=== PATIENT | female | born 1965 | race Caucasian/White ===

== ENCOUNTER 2017-07-12 06:42 | Inpatient (IN) | payer OTHER ==
[~2017-07-12] VITALS: Ht 152.4 cm; Wt 69.4 kg
[2017-07-12] VITALS (54 sets, daily range): BP systolic 82–151; BP diastolic 44–123
--- NOTE | ~2017-07-12 | HC ---
[facility] [place] [address] [place] [address] CONSULTATION Name: SOM VAUGHN Room #: 236-P ADM IN M.R.#: [id number] Admission: 07/12/17 Attend Phys: Guru Austin MD Discharge: Date of : 67 Report #: [id number] THIS REPORT FOR: //name// CC: Maribel Austin REASON FOR CONSULTATION: I was asked to evaluate concerning pneumonia and septic shock. HISTORY OF PRESENT ILLNESS: The patient is a 51-year-old who presented to the Emergency Room on 07/12/2017, with shortness of breath. She was diagnosed approximately 3 weeks ago with sinus congestion and cough. She was placed on prednisone and Levaquin for 10 days. She did not improve with this and is now hospitalized with progressive weakness, fatigue, fever and nonproductive cough. She has had chest pain in the central anterior chest. No hemoptysis. No significant travel. She is a nonsmoker. She has not been exposed to any other ill persons. She has had previous sinus surgery approximately 15 years ago. No cardiac history. ALLERGIES: PENICILLIN WITH DIFFICULTY BREATHING; ERYTHROMYCIN, GI UPSET. MEDICATIONS: Prior to her admission included Zofran, Phenergan, potassium, Tricor, Zoloft, Topamax, Rupali-D, Relafen, propranolol, alprazolam, morphine, Flexeril, Voltaren, and Neurontin. PAST MEDICAL HISTORY: Cholecystectomy, chronic back pain, migraine headaches, sinus surgery, lumbar spine surgery, and hysterectomy. FAMILY HISTORY: Noncontributory. SOCIAL HISTORY: Nonsmoker, no significant alcohol intake, no HIV risk factors. REVIEW OF SYSTEMS: No GI, , skin or joint issues. PHYSICAL EXAMINATION: VITAL SIGNS: Afebrile, pulse 72, respirations 15, blood pressure 94/48, on Levophed drip. GENERAL: She is on BiPAP, alert, and cooperative. NEUROLOGIC: Mental status was normal. Neurologic examination normal. SKIN: Unremarkable. LYMPH: Unremarkable. HEENT: Unremarkable. NECK: Supple, no adenopathy. CHEST: Crackles heard posteriorly throughout with no consolidation. No rub. HEART: Regular without murmur. ABDOMEN: Soft, nontender, no hepatosplenomegaly or mass. [facility] [address] [place] [address] CONSULTATION Name: SOM VAUGHN Room #: 236[facility] IN M.R.#: [id number] Admission: 07/12/17 Attend Phys: Guru Austin MD Discharge: Date of : 67 Report #: [id number] LABORATORY STUDIES: Sodium 141, potassium 4.4, bicarb of 17, creatinine 1.4. AST 919, ALT 438, alk phos 124, bilirubin normal. Albumin at 2.8. Lactate 1.2. CPK 186. BNP 13,000. INR 1.3. Hemoglobin 11.9, white count 16, platelet count 372,000. Differential, 83% segs, 0% bands. Procalcitonin 0.2. ABGs on 2 liters showed a pO2 of 107, pCO2 of 37, pH 7.2. Chest x-ray, bilateral infiltrates with vascular congestion and cardiomegaly. Ultrasound of lower extremity is negative for DVT. CT scan of the chest, fairly extensive diffuse infiltrate, likely edema and enlarged mediastinal hilar adenopathy, small right pleural effusion. IMPRESSION: A 51-year-old with bilateral pulmonary infiltrates consistent with edema, still unclear if cardiogenic or noncardiogenic. She also has leukocytosis, acidosis, hepatitis. Although she does not have much peripheral edema, I would be concerned about viral etiology with possible viral myocarditis, although her CPK and cardiac enzymes were normal, she acts like this could be associated cardiomyopathy. Recommend continuing her workup to include urine antigen for legionella, strep pneumo. Check viral respiratory panel. EBV, CMV, HIV and fungal serology panel. Check sedimentation rate, [place], ASO, and echocardiogram. Blood, urine and sputum cultures. Continue with broad antibiotic coverage pending studies. <ELECTRONICALLY SIGNED> By: Palmer Wheat MD 07/13/17 1543 1404 1502 Palmer Wheat MD /nt
--- NOTE | ~2017-07-12 | EKG ---
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 feliz : 1965 Requested By: Nyla Boateng Order Number: [id number] MD: Fletcher Bahena Measurements Intervals [place] Rate: 84 P: 136 ND: 138 QRS: 161 QRSD: 91 T: 189 QT: 368 QTc: 436 Interpretive Statements Right and left arm electrode reversal, interpretation assumes no reversal Sinus rhythm Probable left atrial enlargement Nonspecific T abnormalities, diffuse leads Electronically Signed On 07-13-2017 17:35:35 CDT by Fletcher Bahena [email or web address] <ELECTRONICALLY SIGNED> By: Fletcher Bahena MD 07/13/17 1735 Fletcher Bahena MD /MILAGROS
--- NOTE | ~2017-07-12 | HC ---
[facility] [place] [address] CONSULTATION Name: SOM VAUGHN Room #: 236-P ADM IN M.R.#: [id number] Admission: 07/12/17 Attend Phys: Guru Austin MD Discharge: Date of : 67 Report #: [id number] THIS REPORT FOR: //name// CC: Maribel Austin DATE OF SERVICE: 07/12/2017 REASON FOR CONSULTATION: Acute respiratory failure. IMPRESSION: 1. Acute respiratory failure. 2. Pulmonary hypertension. 3. Sepsis. 4. Elevated LFTs. 5. Fatigue with encephalopathy. 6. History of chronic pain. PLAN: We will place on BiPAP, aerosol, maintain pressure. Will need to have outpatient evaluation of pulmonary hypertension as it could not be explained. Discussed with and son on the phone. We will obtain records from [facility] as a lower episode occurred to her there about a year ago. HISTORY OF PRESENT ILLNESS: A 51-year-old female comes in with progressive shortness breath over the last few days, may have been sick for over a week with some sinus issues, also received antibiotics, I believe Levaquin; positive cough; shortness of breath; fatigue; myalgias; arthralgias. No definite chest pain or palpitations. Positive shortness of breath. No history of sleep apnea and has had a sleep study, I believe ____. ALLERGIES: PENICILLIN AND ERYTHROMYCIN. SOCIAL HISTORY: Negative rheumatologic problems per . SOCIAL HISTORY: Negative tobacco. Rare ETOH. PAST SURGICAL HISTORY: Include hysterectomy, oophorectomy, back surgery, sinus surgery and cholecystectomy. REVIEW OF SYSTEMS: As above. History of migraines. She has been seen at [facility] in the past as well as [facility]. PHYSICAL EXAMINATION: VITAL SIGNS: Temperature 98; pulse 75; respirations 15; BP 131/77, seen times 3-day. EYES: Negative icterus. [facility] [address] [place] [address] CONSULTATION Name: SOM VAUGHN Room #: 236-P [facility] IN M.R.#: [id number] Admission: 07/12/17 Attend Phys: Guru Austin MD Discharge: Date of : 67 Report #: [id number] NECK: Negative JVD. LUNGS: Crackles. HEART: Regular. ABDOMEN: Bowel sounds present. EXTREMITIES: Showed no clubbing or cyanosis or edema. She wakens on BiPAP. LABORATORY DATA: BUN 28, creatinine 11. MRSA negative. Sed rate was 41. White count 11.5, bands 3, platelets 286. Urine and legionella negative. CT chest showed extensive diffuse infiltrate, enlarged mediastinal and hilar adenopathy, small right effusion and small amount of free pelvic fluid and perihepatic fluid. Echo showed PA pressure of 80, right atrial pressure of 15, ejection fraction 65, right ventricle and right atrium were dilated, [id number] pulmonic regurg, no effusion. We will follow closely with you. By: [id number] Magda Suero MD /nt
--- NOTE | ~2017-07-12 | 2DMMODE ---
[facility] [place] [address] [place] [address] 2 D/M-MODE ECHOCARDIOGRAM Name: SOM VAUGHN Room #: 236-P ADM IN M.R.#: [id number] Admission: 07/12/17 Attend Phys: Guru Austin, Discharge: Date of : 67 Date of Service: 07/13/17 1048 Report #: [id number] THIS REPORT FOR: //name// APPROVED REPORT Study performed: 07/13/2017 09:33:47 EXAM: Comprehensive 2D, Doppler, and color-flow Echocardiogram Patient Location: ICU Room #: 236 Status: routine BSA: 1.66 HR: 84 bpm BP: 137/76 mmHg Other Information Study Quality: Good Indications Pulmonary Hypertension 2D Dimensions RVDd: 37.84 mm IVC: 24.00 mm Tricuspid Valve TR Peak Chetan.: 4.04 m/s TR Peak Gr.: 65.20 mmHg PA Pressure: 80.00 mmHg Left Ventricle The left ventricle is normal size. There is normal left ventricular wall thickness. The left ventricular systolic function is normal. The left ventricular ejection fraction is within the normal range. LVEF is 60-65%. Right Ventricle Right ventricle is at the upper limits of normal. The right ventricular systolic function is normal. Atria Left atrium is dilated. Right atrium is dilated. Aortic Valve The aortic valve is normal in structure. [facility] [address] [place] [address] 2 D/M-MODE ECHOCARDIOGRAM Name: SOM VAUGHN Room #: 236-P ADM IN M.R.#: [id number] Admission: 07/12/17 Attend Phys: Guru Austin, Discharge: Date of : 67 Date of Service: 07/13/17 1048 Report #: [id number] Mitral Valve The mitral valve is normal in structure. Tricuspid Valve The tricuspid valve is normal in structure. There is moderate tricuspid regurgitation. Estimated PAP 80 mmHg. There is severe pulmonary hypertension. Pulmonic Valve The pulmonary valve is normal in structure. Great Vessels The aortic root is normal in size. The inferior vena cava is dilated with no inspiratory collapse. Pericardium There is no pericardial effusion. <Conclusion> The left ventricle is normal size. LVEF is 60-65%. Right ventricle is at the upper limits of normal. Left atrium is dilated. Right atrium is dilated. The aortic valve is normal in structure. The mitral valve is normal in structure. The tricuspid valve is normal in structure. There is moderate tricuspid regurgitation. Estimated PAP 80 mmHg. There is severe pulmonary hypertension. The pulmonary valve is normal in structure. There is no pericardial effusion. <ELECTRONICALLY SIGNED> By: Favian Oswald MD 07/13/17 1048 1048 47 Favian Oswald MD /INF
--- NOTE | ~2017-07-12 | 2DMMODE ---
[facility] [address] [email or web address] [address] 2 D/M-MODE ECHOCARDIOGRAM Name: SOM VAUGHN Room #: 236-P [facility] IN M.R.#: [id number] Admission: 07/12/17 Attend Phys: Guru Austin, Discharge: Date of : 67 Date of Service: 07/12/17 1334 Report #: [id number] THIS REPORT FOR: //name// APPROVED REPORT Study performed: 07/12/2017 12:37:43 EXAM: Comprehensive 2D, Doppler, and color-flow Echocardiogram Patient Location: ICU Room #: 236 Status: stat BSA: 1.61 BP: 94/46 mmHg Other Information Study Quality: Adequate Technically limited study due to inability to position patient, patient condition. Indications Dyspnea 2D Dimensions RVDd: 39.73 mm LVEF(%): 69.34 (>50%) IVSd: 9.69 (7-11mm) LVOT Diam: 16.21 (18-24mm) LVDd: 39.93 mm PWd: 8.77 (7-11mm) Ascending Ao: 26.84 (22-36mm) LVDs: 24.57 (25-40mm) Aortic Root: 22.29 mm IVC: 24.00 mm Perrin's LVEF: 69.34 % Volumes Left Atrial Volume (Systole) Single Plane 4CH: 38.56 mL Single Plane 2CH: 38.12 mL LA ESV Index: 27.00 mL/m2 Aortic Valve AoV Peak Chetan.: 1.49 m/s AO Peak Gr.: 8.84 mmHg LVOT Max P.80 mmHg LVOT Max V: 0.97 m/s MAGO Vmax: 1.35 cm2 Mitral Valve E/A Ratio: 0.7 [facility] [email or web address] [address] 2 D/M-MODE ECHOCARDIOGRAM Name: SOM VAUGHN ROBERT Room #: 236-P [facility] IN M.R.#: [id number] Admission: 07/12/17 Attend Phys: Guru Austin, Discharge: Date of : 67 Date of Service: 07/12/17 1334 Report #: [id number] MV Decel. Time: 206.52 ms MV E Max Chetan.: 0.83 m/s MV A Chetan.: 1.13 m/s MV PHT: 59.89 ms IVRT: 107.27 ms Pulmonary Valve PV Peak Chetan.: 1.01 m/s PV Peak Gr.: 4.06 mmHg Pulmonary Vein P Vein S: 0.61 m/s P Vein A: 0.20 m/s P Vein D: 0.50 m/s P Vein A Dur.: 83.0 msec P Vein S/D Ratio: 1.22 Tricuspid Valve TR Peak Chetan.: 4.02 m/s RAP Estimate: 15.00 mmHg TR Peak Gr.: 64.65 mmHg Left Ventricle The left ventricle is normal size. There is normal left ventricular wall thickness. The left ventricular systolic function is normal. The left ventricular ejection fraction is within the normal range. LVEF is 65%. Mild diastolic dysfunction is present (impaired relaxation pattern). Right Ventricle Right ventricle is dilated. The right ventricular systolic function is normal. Atria The left atrium size is normal. Right atrium is severely dilated. Echo noted on apical views not seen on other views suspect artifact Aortic Valve The aortic valve is normal in structure. Trace aortic regurgitation. There is no aortic valvular stenosis. Mitral Valve The mitral valve is normal in structure. Mild mitral regurgitation. No evidence of mitral valve stenosis. Tricuspid Valve The tricuspid valve is normal in structure. There is moderate to severe tricuspid regurgitation. The right atrial pressure is estimated at 15 mmHg. PAP is estimated [place] [address] [place] [address] 2 D/M-MODE ECHOCARDIOGRAM Name: SOM VAUGHN Room #: 236-P [facility] IN M.R.#: [id number] Admission: 07/12/17 Attend Phys: Guru Austin, Discharge: Date of : 67 Date of Service: 07/12/17 1334 Report #: [id number] Pulmonic Valve The pulmonary valve is normal in structure. Trace to mild pulmonic regurgitation. Great Vessels The aortic root is normal in size. IVC is dilated and collapses <50% with inspiration. Pericardium There is no pericardial effusion. <Conclusion> The left ventricle is normal size. LVEF is 65%. Right ventricle is dilated. The right ventricular systolic function is normal. Right atrium is severely dilated. Echo noted on apical views not seen on other views suspect artifact The aortic valve is normal in structure. Trace aortic regurgitation. The mitral valve is normal in structure. Mild mitral regurgitation. The tricuspid valve is normal in structure. There is moderate to severe tricuspid regurgitation. The right atrial pressure is estimated at 15 mmHg. PAP is estimated at 80 mmHg. The pulmonary valve is normal in structure. Trace to mild pulmonic regurgitation. There is no pericardial effusion. <ELECTRONICALLY SIGNED> By: Favian Oswald MD 07/12/17 1334 1334 1334 Favian Oswald MD /INF
--- NOTE | ~2017-07-12 | EKG ---
[place] [address] [facility] [place] [address] ELECTROCARDIOGRAM REPORT Name: SOM VAUGHN Room #: [facility].#: [id number] Admission: Attend Phys: Discharge: Date of : 67 Report #: [id number] THIS REPORT FOR: //name// [facility] ED Test Date: 2017-07-12 Test Time: 07:30:53 Pat Name: SOM VAUGHN Department: Room: Gender: F Veterans Contact Representative: : 1965 Requested By: Marianna Huizar Order Number: [id number] MD: Artemio Guerrero Measurements Intervals [place] Rate: 76 P: 50 [place]: 151 QRS: 34 QRSD: 93 T: -22 QT: 421 QTc: 474 Interpretive Statements Sinus rhythm Nonspecific T abnormalities, anterior leads Compared to ECG 12/12/2013 14:38:55 Sinus tachycardia no longer present T-wave abnormality still present Electronically Signed On 07-12-2017 7:53:44 CDT by Artemio Guerrero [email or web address] <ELECTRONICALLY SIGNED> By: Artemio Guerrero MD, [facility] 07/12/17 0753 0730 9 Artemio Guerrero MD, FACC /EPI
--- NOTE | ~2017-07-12 | EKG ---
[address] [address] ELECTROCARDIOGRAM REPORT Name: SOM VAUGHN Room #: 236-[facility] IN M.R.#: [id number] Admission: 07/12/17 Attend Phys: Guru Austin MD Discharge: 07/13/17 Date of : 67 Report #: [id number] THIS REPORT FOR: //name// [facility] Test Date: 2017-07-13 Test Time: 14:29:17 Pat Name: SOM VAUGHN Department: Room: 236 Gender: F [employer]: oleg : 1965 Requested By: Guru Austin Order Number: [id number] MD: Fletcher Bahena Measurements Intervals [place] Rate: 78 P: 139 [place]: 142 QRS: 2 QRSD: 91 T: -15 QT: 378 QTc: 431 Interpretive Statements Sinus or ectopic atrial rhythm Low voltage, extremity leads Compared to ECG 07/12/2017 07:30:53 Low QRS voltage now present Sinus rhythm no longer present T-wave abnormality no longer present Electronically Signed On 07-13-2017 17:42:33 CDT by Fletcher Bahena [email or web address] <ELECTRONICALLY SIGNED> By: Fletcher Bahena MD 07/13/17 1742 1429 1429 Fletcher Bahena MD /EPI
[~2017-07-12 06:42] MED LIST: ADULT LOW DOSE81 MG PO; ALLEGRA-D 12 H1 EAC1 PO; HYDROCODONE-AP1 EA10 PO; NABUMETONE 750750 M1 PO; PHENERGAN 25 MG25 M1 PO; PHENERGAN50 MG RC; POTASSIUM20 PO; PREMARIN0.625 MG PO; TOPAMAX25 M1 PO; TOPAMAX50 MG PO; TRICOR145 MG PO; VICODIN 5-5001 EACH PO; ZOFRAN ODT4 MG PO; ZOLOFT100 MG PO
[2017-07-12] MEDS ORDERED: INNOPRAN XL120 MG PO (07:00)
[2017-07-12] MEDS ORDERED: XANAX 0.5 MG0.5 MG PO (07:01)
[2017-07-12] MEDS ORDERED: ROXICODONE5 M2 PO (07:02)
[2017-07-12] MEDS ORDERED: MS CONTIN15 MG (07:03)
[2017-07-12] MEDS ORDERED: FLEXERIL PO (07:04)
[2017-07-12] MEDS ORDERED: DICLOFENAC SODI75 MG PO (07:05)
[2017-07-12] MEDS ORDERED: NEURONTIN600 MG (07:07)
[2017-07-12 07:10] LABS: HEMATOCRIT 36.6 % (37.0-47.0); HEMOGLOBIN 11.9 gm/dL (12.0-15.0); MANUAL DIFF YES; MCH 30.2 pg (26.0-34.0); MCHC 32.5 g/dL (28.0-37.0); PLATELET COUNT 372 thou/uL (150-400); RBC 3.93 mil/uL (4.20-5.00); RDW 14.6 % (10.5-14.5)
[2017-07-12 07:18] LABS: CALCIUM 8.7 mg/dL (8.5-10.1); CREATININE 1.5 mg/dL (0.6-1.0); POTASSIUM 4.5 mmol/L (3.5-5.1)
[2017-07-12 07:48] LABS: ALBUMIN 2.8 g/dL (3.4-5.0); DIRECT BILIRUBIN 0.4 mg/dL (<0.1-0.3); TOTAL BILIRUBIN 0.8 mg/dL (<0.1-1.0); TOTAL PROTEIN 6.8 g/dL (6.4-8.2)
[2017-07-12 08:04] LABS: ABSOLUTE NEUTROPHILS 13.3 thou/uL (1.4-8.2); ANISOCYTOSIS SLIGHT; POLYCHROMASIA OCCASIONAL; TOTAL CELL COUNT 100
[2017-07-12 08:16] LABS: ABG SAMPLE TYPE ARTERIAL; BE(vivo) -10.3 mmol/L (-2 to +3); HCO3 15.6 mmol/L (22.0-26.0); LACTATE 1.21 mmol/L (0.5-2.0); O2(CT) 14.2 mL/dL (15.0-23.0); O2Hb 88.2 % (92.0-98.0); PCO2 34.4 mmHg (35.0-45.0); PO2 68.1 mmHg (80.0-100.0); sO2 91.5 % (92.0-98.0); tCO2 16.6 mmol/L (24.0-30.0)
[2017-07-12 08:17] LABS: STICK SITE R.RADIAL; pH 7.274 (7.360-7.450)
[2017-07-12 10:41] LABS: ANION GAP 17 mmol/L (7-16); BUN 24 mg/dL (7-18); CALCIUM 8.8 mg/dL (8.5-10.1); CHLORIDE 104 mmol/L (98-107); CO2 15 mmol/L (21-32); CREATININE 1.6 mg/dL (0.6-1.0); GLUCOSE 127 mg/dL (74-106); POTASSIUM 4.6 mmol/L (3.5-5.1); SODIUM 136 mmol/L (136-145)
[2017-07-12 10:50] LABS: TROPONIN-I < 0.04 ng/mL (<0.04-0.07)
[2017-07-12 11:11] LABS: CALCIUM 7.8 mg/dL (8.5-10.1); CREATININE 1.4 mg/dL (0.6-1.0); POTASSIUM 4.4 mmol/L (3.5-5.1)
[2017-07-12 13:00] LABS: ABG SAMPLE TYPE ARTERIAL; BE(vivo) -11.6 mmol/L (-2 to +3); HCO3 15.3 mmol/L (22.0-26.0); LACTATE 1.21 mmol/L (0.5-2.0); O2(CT) 16.8 mL/dL (15.0-23.0); O2Hb 94.9 % (92.0-98.0); PCO2 37.8 mmHg (35.0-45.0); PO2 107.5 mmHg (80.0-100.0); STICK SITE R.RADIAL; pH 7.224 (7.360-7.450); tCO2 16.4 mmol/L (24.0-30.0)
[2017-07-12 13:26] LABS: APTT 30.1 Seconds (24.5-32.8); FIBRINOGEN 409.6 mg/dL (210-360); INR 1.3; PROTIME 13.1 Seconds (9.3-11.4)
[2017-07-12 16:07] LABS: HEMATOCRIT 34.3 % (37.0-47.0); HEMOGLOBIN 10.9 gm/dL (12.0-15.0); MCH 29.7 pg (26.0-34.0); MCHC 31.9 g/dL (28.0-37.0); MCV 93.1 fL (80.0-100.0); RBC 3.69 mil/uL (4.20-5.00); RDW 14.6 % (10.5-14.5); WBC 11.5 thou/uL (4.0-11.0)
[2017-07-12 16:10] LABS: PLATELET COUNT 286 thou/uL (150-400)
[2017-07-12 16:11] LABS: MANUAL DIFF YES
[2017-07-12 16:22] LABS: CALCIUM 7.8 mg/dL (8.5-10.1); CREATININE 1.2 mg/dL (0.6-1.0); POTASSIUM 3.9 mmol/L (3.5-5.1)
[2017-07-12 16:31] LABS: ABSOLUTE NEUTROPHILS 10.9 thou/uL (1.4-8.2); ANISOCYTOSIS 1+; METAMYELOCYTES 1 %; POLYCHROMASIA OCCASIONAL; TOTAL CELL COUNT 100
[2017-07-12 20:23] LABS: CALCIUM 8.1 mg/dL (8.5-10.1); CREATININE 1.1 mg/dL (0.6-1.0)
[2017-07-12 22:10] LABS: ALBUMIN 2.4 g/dL (3.4-5.0); DIRECT BILIRUBIN 0.2 mg/dL (<0.1-0.3); TOTAL BILIRUBIN 0.4 mg/dL (<0.1-1.0)
[2017-07-13] VITALS (25 sets, daily range): BP systolic 109–157; BP diastolic 65–96
[2017-07-13 04:37] LABS: HEMATOCRIT 33.2 % (37.0-47.0); HEMOGLOBIN 10.7 gm/dL (12.0-15.0); MCH 29.8 pg (26.0-34.0); MCHC 32.1 g/dL (28.0-37.0); MCV 92.8 fL (80.0-100.0); PLATELET COUNT 259 thou/uL (150-400); RBC 3.57 mil/uL (4.20-5.00); RDW 14.5 % (10.5-14.5); WBC 11.5 thou/uL (4.0-11.0)
[2017-07-13 04:54] LABS: MANUAL DIFF YES
[2017-07-13 04:55] LABS: ALBUMIN 2.4 g/dL (3.4-5.0); ALKALINE PHOSPHATASE 110 U/L (46-116); ANION GAP 10 mmol/L (7-16); BUN 31 mg/dL (7-18); CALCIUM 8.4 mg/dL (8.5-10.1); CHLORIDE 112 mmol/L (98-107); CHOLESTEROL 102 mg/dL (<200); CO2 21 mmol/L (21-32); GLUCOSE 146 mg/dL (74-106); HDL CHOLESTEROL 13 mg/dL (>40); LDL CHOLESTEROL 62 mg/dL (<100); POTASSIUM 4.1 mmol/L (3.5-5.1); SGOT 654 U/L (15-37); SGPT 618 U/L (30-65); SODIUM 143 mmol/L (136-145); TC:HDL 7.8 Ratio (Not establshd); TOTAL BILIRUBIN 0.5 mg/dL (<0.1-1.0); TOTAL PROTEIN 6.4 g/dL (6.4-8.2); TRIGLYCERIDE 136 mg/dL (<150); VLDL 27 mg/dL (<40)
[2017-07-13 04:59] LABS: SERUM ASSESSMENT Clear
[2017-07-13 05:09] LABS: ABG SAMPLE TYPE ARTERIAL; BE(vivo) -7.2 mmol/L (-2 to +3); HCO3 18.8 mmol/L (22.0-26.0); O2(CT) 16.8 mL/dL (15.0-23.0); O2Hb 97.7 % (92.0-98.0); PO2 148.3 mmHg (80.0-100.0); sO2 98.7 % (92.0-98.0); tCO2 20.1 mmol/L (24.0-30.0)
[2017-07-13 05:10] LABS: Pressure Support 4 cm H20; STICK SITE L.RADIAL; TIDAL VOLUME 550 ml; pH 7.291 (7.360-7.450)
[2017-07-13 05:14] LABS: ABSOLUTE NEUTROPHILS 10.9 thou/uL (1.4-8.2); TOTAL CELL COUNT 100
[2017-07-13 10:07] LABS: HEPATITIS C VIRUS AB <0.1 (0.0-0.9)
[2017-07-13 10:56] LABS: URINE BILIRUBIN NEGATIVE (Negative); URINE BLOOD 1+ (Negative); URINE COLOR YELLOW; URINE GLUCOSE-RANDOM* NEGATIVE (Negative); URINE KETONES 1+ (Negative); URINE NITRITE NEGATIVE (Negative); URINE PROTEIN (DIPSTICK) TRACE (Negative); URINE SPECIFIC GRAVITY >= 1.030 (1.003-1.035)
[2017-07-13 11:06] LABS: BACTERIA 1-9 Few /HPF (None Seen); CRYSTALS None Seen /LPF (None Seen); HYALINE CASTS 0-3 Few /LPF (None Seen); SQUAMOUS 0-3 Few /LPF (0-3); URINE RBC 0-2 Rare /HPF (0-2); URINE WBC 0-5 Rare /HPF (0-5)
[2017-07-13 13:11] LABS: ANTI-VCA/IgM <36.0 U/mL (0.0-35.9)
[2017-07-13 15:09] LABS: HIV ANTIBODY Non Reactive (Non Reactive)
[2017-07-14 04:07] LABS: ANGIOTENSIN CONVERTNG ENZ 58 U/L (14-82)
[2017-07-14 10:08] LABS: GLOMERULR BASEM MEMBRN AB 3 units (0-20)
[2017-07-14 13:12] LABS: ANTI-EBNA 74.6 U/mL (0.0-17.9); ANTI-VCA/IgG >600.0 U/mL (0.0-17.9)
[2017-07-14 16:10] LABS: COXSACKIE A16 IGM Negative titer (Neg:<1:10); COXSACKIE A24 IGM Negative titer (Neg:<1:10); COXSACKIE A7 IGM Negative titer (Neg:<1:10); COXSACKIE A9 IGM Negative titer (Neg:<1:10); c-ANCA <1:20 titer (Neg:<1:20); p-ANCA <1:20 titer (Neg:<1:20)
[2017-07-14 18:07] LABS: HISTOPLASMA MYCELIAL-ID Negative (Negative)
[2017-07-14 20:09] LABS: COXSACKIE B-2 AB Negative (Neg:<1:8); COXSACKIE B-3 AB Negative (Neg:<1:8); COXSACKIE B-4 AB Negative (Neg:<1:8); COXSACKIE B-5 AB 1:16 (Neg:<1:8); HISTOPLASMA MYCELIAL-CF Negative (Neg:<1:2); HISTOPLASMA YEAST BY CF Negative (Neg:<1:2)
[2017-07-15 09:08] LABS: INFLUENZA B Negative (Negative); METAPNEUMOVIRUS Negative (Negative)
== END 2017-07-13 16:20 | disposition short-term general hospital (02) | DRG 871 ==
LOC: ER 06:42 → EROBS 08:43 → ICU 08:43
PROVIDERS: Emergency Medicine; Internal Medicine; Internal Medicine Pulmonary Disease; Nurse Practitioner; Specialist
PROC: 02HV33Z Insertion of Infusion Device into Superior Vena Cava, Percutaneous Approach (ICD-10-PCS; principal; 2017-07-12)
DX: A41.9 Sepsis, unspecified organism (principal); J96.01 Acute respiratory failure with hypoxia; G93.40 Encephalopathy, unspecified; R65.21 Severe sepsis with septic shock; E44.0 Moderate protein-calorie malnutrition; K75.9 Inflammatory liver disease, unspecified; I27.20 Pulmonary hypertension, unspecified; G43.909 Migraine, unspecified, not intractable, without status migrainosus; G89.29 Other chronic pain; Z90.710 Acquired absence of both cervix and uterus; Z87.828 Personal history of other (healed) physical injury and trauma; Z79.82 Long term (current) use of aspirin; Z79.899 Other long term (current) drug therapy; Z68.29 Body mass index [BMI] 29.0-29.9, adult; Z88.0 Allergy status to penicillin; Z88.1 Allergy status to other antibiotic agents; Z90.49 Acquired absence of other specified parts of digestive tract; Z90.722 Acquired absence of ovaries, bilateral; Z80.8 Family history of malignant neoplasm of other organs or systems; Z82.49 Family history of ischemic heart disease and other diseases of the circulatory system
CPT/HCPCS: 10203; 27000